=== PATIENT | male | born 1945 | race Caucasian/White ===

== ENCOUNTER 2018-01-30 10:51 | Emergency (ER) | payer MEDICARE, OTHER ==
[2018-01-30] MEDS: LIDOCAINE 1% PF 2 ML VIAL. INJ ×2 (12:39→12:40)
== END 2018-01-30 14:03 | disposition home or self-care (01) ==
LOC: ER 10:51
DX: S61.411A Laceration without foreign body of right hand, initial encounter (principal); Z88.2 Allergy status to sulfonamides; W29.8XXA Contact with other powered hand tools and household machinery, initial encounter; Y93.89 Activity, other specified; Y99.8 Other external cause status; Y92.89 Other specified places as the place of occurrence of the external cause
CPT/HCPCS: 12002; 99283-25